=== PATIENT | female | born 1955 | race Caucasian/White ===

== ENCOUNTER 2016-07-08 22:22 | Emergency (ER) | payer BC ==
--- NOTE | 2016-07-09 07:17 | ER ---
ADMIT: 07/08/2016 RM/LOC: ER [facility] MR#: [id number] [address] [id number] JESSICA STRAUSSNA Kofi [address] [place] [id number] Emergency Room Report SEX: F AGE: 60 : 1955 DATE: 07/08/2016 The patient is a 60-year-old female, COPD, complaints of acute exacerbation past 24 hours, associated with migraine headache. Exam remarkable for nontoxic, afebrile, acutely uncomfortable female, responded well to DuoNeb, aerosol, Solu-Medrol, magnesium, Toradol with improvement of COPD and headache. Dismissed on doxycycline 100 mg b.i.d. x7 days, prednisone 40 mg daily x5 days, albuterol MDI as needed. Follow up Dr. Hull as needed. Javon Balderas MD/ magdalena JOB #: [id number] CC: Javon Balderas MD, Attending Physician Eddie Hull MD, Family Physician Eddie Hull MD
== END 2016-07-09 00:05 | disposition home or self-care (01) ==
LOC: ER 22:22
DX: J44.1 Chronic obstructive pulmonary disease with (acute) exacerbation (principal); I10 Essential (primary) hypertension; E03.9 Hypothyroidism, unspecified; G43.909 Migraine, unspecified, not intractable, without status migrainosus; Z90.49 Acquired absence of other specified parts of digestive tract; Z79.899 Other long term (current) drug therapy